=== PATIENT | male | born 1965 | race Caucasian/White ===

== ENCOUNTER 2021-11-14 10:02 | Outpatient (CLI) | payer OTHER, SELFPAY ==
--- NOTE | ~2021-11-14 | XR_ITS ---
EXAMINATION: XR lg joint inject/asp w image DATE: 11/14/2021 11:12 INDICATION: Left frozen shoulder TECHNIQUE: A time-out was performed to verify the patient's name, date of , and procedure to b e performed. The procedure including the risks, benefits, and alternatives was discussed with the pat ient. Risks discussed included bleeding and infection. The patient understood the risks and agreed to proceed. The skin overlying the rotator cuff interval of the left glenohumeral joint was prepped an d draped in usual sterile fashion. Anesthetic was administered with 1% lidocaine subcutaneously. A 22 G needle was advanced under fluoroscopic guidance into the joint. Injection of a small amount of gas confirmed intra-articular position of the needle. Subsequently, injectate consisting of 5 mm of a 4:1 mixture of 1% lidocaine: 80 mg/mL Depo-Medrol for a total dosage of 80 mg Depo-Medrol was insti lled. There were no immediate complications. Fluoroscopy exposure time was 0.1 minutes. The total num tommy of images was 2. FINDINGS: Real-time fluoroscopy demonstrates the needle and gas in the left glenohumeral joint. Patie nt's pain prior to procedure:08/11. Patient's pain following the procedure: 06/13. IMPRESSION: 1. Successful left glenohumeral joint injection of local anesthetic and steroid with decrease in the patient's presenting pain. Reviewed, dictated and finalized at location A.
== END 2021-11-14 10:03 | disposition home or self-care (01) ==
LOC: ANHIMG 10:07
PROVIDERS: PCP Internal Medicine; Visit Provider Orthopaedic Surgery
DX: M75.02 Adhesive capsulitis of left shoulder (principal)
CPT/HCPCS: 20610; 77002; J1040

== ENCOUNTER 2023-09-03 19:44 | Emergency (ER) | payer OTHER, SELFPAY ==
--- NOTE | ~2023-09-03 | XR_ITS ---
EXAM: XR finger 1st LT min 2V DATE: 09/03/2023 20:28 HISTORY: puncture wound . COMPARISON: None available. FINDINGS: Normal mineralization. No fracture or dislocation. No lytic or blastic lesion. Joint space s are maintained. No erosion or periosteal change. Soft tissue swelling over the left digit. Small fo cus of subcutaneous gas in the oblique view adjacent to the distal portion of the proximal phalange m ay represent soft tissue laceration or puncture wound. IMPRESSION: No acute osseous finding in the left second digit. No radiopaque foreign body. Reviewed, dictated and finalized at location K. IMPRESSION: No acute osseous finding in the left second digit. No radiopaque fo reign body.
[2023-09-03 20:00] VITALS: BP 123/84; PULSE 70; RESP 20; TEMP 36.6; O2SAT 98
--- NOTE | 2023-09-03 20:09 | ED.GENADULT ---
HPI - General Adult General Chief complaint: Wound/Laceration Stated complaint: upper extremity injury, left History of Present Illness HPI narrative: Nawaf is a 57M with a PMH of tobacco abuse that presented to the ED after sustaining a puncture wound on his left 2nd digit from a trailer hitch. He has no other injuries. It does hurt a lot but he is able to move it. Related Data Allergies Allergy/AdvReac Type Severity Reaction Status Date / Time No Known Allergies Allergy Verified 04/21/19 07:45 Review of Systems Review of Systems: All systems reviewed & are unremarkable except as noted in HPI and below [facility] Past Medical History Medical History Tobacco abuse Social History Social History Smoking status: Current every day smoker Exam Const: General: cooperative, healthy appearing, comfortable, no acute distress, well developed, alert, awake and Physically active Orientation/consciousness: oriented to person, oriented to place and oriented to time HENMT: Head: normal to inspection, normocephalic and atraumatic Ears: hearing grossly normal bilaterally and external ears normal Face/Nose/Sinus: Normal external nose present Eyes: General: appearance normal, both eyes and all related structures Periorbital: periorbital findings normal Sclera: sclerae normal Pupils: Equal, round and reactive pupils present Neck: Neck: normal visual inspection Chest: Chest palpation & inspection: normal inspection of the chest Resp: Effort & Inspection: normal respiratory effort, able to speak in complete sentences and no respiratory distress Cardio: Jugular venous distension: no JVD Skin: General skin exam: normal color and no rashes or lesions noted Neuro: General: oriented to person, oriented to place and oriented to time Cranial nerves: Yes Equal, round and reactive pupils present Extrem: General: normal to inspection Other: Left index finger had a puncture wound on the anterior side at the PIP crease. 5/5 finger flexion strength in the left index finger Course Course Emergency Course: Ordered radiographs, Toradol (he denied any opioids), and Zosyn EXAM:? XR finger 1st LT min 2V DATE: 09/03/2023 20:28 HISTORY: puncture wound . COMPARISON:? None available. FINDINGS:? Normal mineralization. No fracture or dislocation. No lytic or blastic lesion. Joint spaces are maintained. No erosion or periosteal change. Soft tissue swelling over the left digit. Small focus of subcutaneous gas in the oblique view adjacent to the distal portion of the proximal phalange may represent soft tissue laceration or puncture wound. IMPRESSION: No acute osseous finding in the left second digit. No radiopaque foreign body. Placed sutures as below Vital Signs Vital signs: Vital Signs Temperature 97.9 F 09/03/23 20:00 Pulse Rate 70 09/03/23 20:00 Respiratory Rate 20 09/03/23 20:00 Blood Pressure 123/84 09/03/23 20:00 Pulse Oximetry 98 09/03/23 20:00 Oxygen Delivery Room Air 09/03/23 20:00 Temperature 97.9 F 09/03/23 20:00 Pulse Rate 70 09/03/23 20:00 Respiratory Rate 18 09/03/23 22:19 Blood Pressure 118/64 09/03/23 22:19 Pulse Oximetry 98 09/03/23 22:19 Oxygen Delivery Room Air 09/03/23 22:19 Procedures Laceration Laceration 1: Date: 09/03/23 Time: 22:55 Site: other (left 2nd finger) Side (If applicable): left Size (cm): 2 Description: linear Depth: involves muscle layer Local Anesthetic: lidocaine 1% Amount of anesthesia used (mL): 1 Pre-repair: wound explored, irrigated and irrigated extensively ====== Skin Level ====== Skin layer closed with: nylon Size (cm): 4-0 Number of sutures: 5 Technique: simple, interrupted ====== Subcutaneous Layer ====== =====
[2023-09-03] MEDS: TETANUS,DIPHTHERIA,AC PERTUSSIS ADULT 0.5 ML (ADACEL) IM (20:41)
[2023-09-03] MEDS: KETOROLAC 30 MG/ML VIAL (*BKC) IV PUSH (20:42)
[2023-09-03] MEDS: PIPERACILLN/TAZ 3.375GM/NS50ML 3.375 GM/50 ML BAG IVPB (20:45)
[2023-09-03 22:19] VITALS: BP 118/64; RESP 18; O2SAT 98
--- NOTE | 2023-09-03 22:29 | PC.NURSE ---
Pt resting and waiting patiently for Xray to be read. Explained to pt about wait due to issues c system. Call placed personally by ERP to radiologist cotton bag clipper at [employer] reading Xrays to get verbal report. Wound cleansed c jerome and JUMA and wrapped in dressing until Xray reading is done.
[2023-09-03 23:05] VITALS: BP 118/75; PULSE 84; RESP 18; TEMP 36.6; O2SAT 99
== END 2023-09-03 23:05 | disposition home or self-care (01) ==
PROVIDERS: Emergency Provider Family Medicine; PCP Internal Medicine
DX: S61.211A Laceration without foreign body of left index finger without damage to nail, initial encounter (principal); T14.90XA Injury, unspecified, initial encounter; Z23 Encounter for immunization
CPT/HCPCS: 12001; 73140; 90471; 90714; 90715; 96365; 96375; 99284; J1885; J2543